=== PATIENT | male | born 1980 | race Caucasian/White ===

== ENCOUNTER 2018-09-02 19:43 | Emergency (ER) | payer SELFPAY, OTHER ==
[2018-09-02] MEDS: IBUPROFEN 800 MG TAB PO (21:18)
[2018-09-02] MEDS: TRIMETHOPRIM/SULFAMETHOX (DS) TAB PO (21:19)
[2018-09-02] MEDS: CEPHALEXIN 500 MG CAP PO (21:19)
[2018-09-02] MEDS: DIPHTH/TET/ACEL PERTUSS (ADULT) 0.5 ML VIAL IM* (21:38)
== END 2018-09-02 22:23 | disposition home or self-care (01) ==
LOC: E/R 19:43
DX: L03.115 Cellulitis of right lower limb (principal)
CPT/HCPCS: 73562; 90471; 90715; 99283-25